=== PATIENT | female | born 1940 ===

== ENCOUNTER 2019-11-16 06:00 | Outpatient (RCR) | payer OTHER, SELFPAY | END 2019-12-03 23:59 | disposition home or self-care (01) | LOC: GPT 06:00 | PROVIDERS: PCP Family Medicine; Referring Provider Neurological Surgery; Visit Provider Neurological Surgery | DX: M25.551 Pain in right hip (principal); M47.816 Spondylosis without myelopathy or radiculopathy, lumbar region; M47.818 Spondylosis without myelopathy or radiculopathy, sacral and sacrococcygeal region | CPT/HCPCS: 97032; 97110; 97161; 97530 ==